=== PATIENT | male | born 1960 | race African-American/Black ===

== ENCOUNTER 2018-06-17 14:57 | Emergency (ER) | payer MEDICAID ==
[~2018-06-17] VITALS: Ht 190.5 cm; Wt 71.3 kg
[2018-06-17 15:00] VITALS: BP 165/78
[2018-06-17] MEDS ORDERED: hydrOXYzine HCL 25 MG TAB PO ONE (15:40)
[2018-06-17] MEDS ORDERED: HYDROcodone/APAP 5/325 MG 1 TAB TAB PO ONE (15:40)
--- NOTE | 2018-06-17 15:50 | NUR ---
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 PT ALSO REPORTS N/V PAST 2 DAYS. DENIES DIARRHEA.
--- NOTE | 2018-06-17 16:00 | NUR ---
pt provided urine sample
--- NOTE | 2018-06-17 16:38 | NUR ---
ultrasound and xray at bedside.
[2018-06-17 16:46] LABS: MEAN CORPUSCULAR HGB CONC 31 g/dL (33-37); RED BLOOD CELL COUNT(AUTO) 3.98 MIL/uL (4.20-6.10); WHITE BLOOD COUNT (AUTO) 5.2 K/uL (4.8-10.8)
[2018-06-17 16:48] LABS: APPEARANCE,URINE CLEAR (CLEAR); BILIRUBIN,URINE 1+ (NEGATIVE); BLOOD, URINE 3+ (NEGATIVE); COLOR,URINE ORANGE (YELLOW); LEUKOCYTE ESTERASE ,URINE TRACE (NEGATIVE); NITRITE, URINE NEGATIVE (NEGATIVE); UGLUCOSE NEGATIVE (NEGATIVE)
[2018-06-17 16:54] LABS: RBC,URINE 11-20 (MOD) /HPF (0-5)
[2018-06-17 17:01] LABS: HEMATOCRIT 27.8 % (36-52); HEMOGLOBIN 8.6 g/dL (12.0-18.0); MEAN CORPUSCULAR HEMOGLOBIN 22 pg (27-31); MEAN CORPUSCULAR VOLUME 69.7 fL (80-94); PLATELET COUNT (AUTO) 88 K/uL (140-450); RED CELL DISTRIBUTION WIDTH 15.3 % (11.6-13.7)
[2018-06-17 17:16] LABS: LYMPHOCYTES % (MANUAL) 6 % (20-46); MONOCYTES % (MANUAL) 11 % (5-12)
--- NOTE | 2018-06-17 17:30 | NUR ---
pt resting, vss.
[2018-06-17 17:34] LABS: ALBUMIN 2.9 g/dL (3.4-5.0); ANION GAP 9.7 (8-16); CARBON DIOXIDE 32.6 mmol/L (21-32); CREATININE 1.1 mg/dL (0.7-1.3); POTASSIUM 3.3 mmol/L (3.5-5.1); TOTAL BILIRUBIN 0.8 mg/dL (0.0-1.0)
[2018-06-17] MEDS ORDERED: cefTRIAXone 1,000 MG in LIDOCAINE 1% ***ER ONLY *** 2.1 ML IM ONE (17:35)
[2018-06-17] MEDS ORDERED: cefTRIAXone 1,000 MG VIAL ONE (18:01)
[2018-06-17 18:02] LABS: URIC ACID 5.4 mg/dL (2.6-7.2)
[2018-06-17] MEDS ORDERED: LIDOCAINE MPF 1% - 5 mL VIAL 5 ML ONE (18:05)
--- NOTE | 2018-06-17 18:57 | NUR ---
Patient discharged with v/s stable. Written and verbal after care instructions given and explained. Patient alert, oriented and verbalized understanding of instructions. Ambulatory with steady gait. All questions addressed prior to discharge. ID band removed. Patient advised to follow up with PMD. Rx of Septra DS 800mg-160mg and Tramadol 50mg given. Patient educated on indication of medication including possible reaction and side effects. Opportunity to ask questions provided and answered.
[2018-06-17 18:58] VITALS: BP 133/80
== END 2018-06-17 18:57 | disposition home or self-care (01) ==
LOC: MED 14:57
DX: G89.18 Other acute postprocedural pain (principal); M79.651 Pain in right thigh; N39.0 Urinary tract infection, site not specified; E11.9 Type 2 diabetes mellitus without complications; I10 Essential (primary) hypertension
CPT/HCPCS: 36415; 73552; 80053; 81001; 82550; 82553; 83874; 84550; 85025; 85379; 85610; 87086; 93971; 96372; 99284; J0696; J2001; Q0092; J7060